=== PATIENT | female | born 1975 | race Caucasian/White ===

== ENCOUNTER 2020-10-15 06:10 | Emergency (ER) | payer BC, SELFPAY ==
--- NOTE | ~2020-10-15 | CT_ITS ---
EXAMINATION: CT ABDOMEN AND PELVIS WITH CONTRAST CLINICAL INFORMATION: Right upper quadrant, epigastric, spermatic pain COMPARISON: CT abdomen and pelvis 04/05/2011 TECHNIQUE: Multidetector volumetric images were obtained from the superior aspect of the liver through the pubic symphysis following administration 85 mL of Omnipaque 350 intravenous contrast. Sagittal and coronal reformatted images were obtained on the technologist's workstation. Oral contrast: No This CT examination was performed using dose optimization techniques as appropriate, variously including the following: *Automated exposure control *Adjustment of mA and/or kV according to patient size (this includes techniques or standardized protocols for targeted exams where dose is matched to indication/reason for exam; i.e. extremities or head) *Use of iterative reconstruction technique DLP: 1434 mGy-cm FINDINGS: LUNG BASES: The lung bases are clear. LIVER, GALLBLADDER, AND BILIARY TREE: The liver is normal in size, shape, and attenuation. No focal hepatic lesion or biliary ductal dilatation is present. The gallbladder is distended with a punctate 5 mm gallstone and adjacent calcification or gravel.. PANCREAS: Unremarkable. SPLEEN: Unremarkable. ADRENAL GLANDS: Unremarkable. KIDNEYS AND URETERS: The kidneys are normal in size, shape, and attenuation. No hydronephrosis, hydroureter, or calculi seen. No perinephric stranding. BLADDER: Unremarkable. GASTROINTESTINAL TRACT: Scattered stool and gas seen in colon without distention. The small bowel loops are normal caliber. Appendix not seen well. ABDOMINAL WALL: No significant hernia is appreciated. LYMPH NODES: Normal. VASCULAR: Unremarkable. PELVIC VISCERA: The uterus is anteverted with scattered calcifications within. OSSEOUS STRUCTURES: Unremarkable. Distended gallbladder with a solitary gallstone with adjacent gravel or calcification. No wall thickening seen. Mild constipation.
--- NOTE | ~2020-10-15 | US_ITS ---
EXAMINATION: US ABDOMEN LIMITED CLINICAL INFORMATION: Right upper quadrant epigastric pain.. COMPARISON: CT scan of the abdomen and pelvis dated 10/15/2020. TECHNIQUE: Real-time imaging of the right upper quadrant abdominal viscera. FINDINGS: PANCREAS: The pancreatic body and portions of the head and tail are visualized and are unremarkable. Remainder of pancreas is obscured by overlying bowel gas. LIVER: Normal. The liver is normal in size. The liver contour is normal. Parenchymal echogenicity is normal. No focal hepatic lesion. There is no intrahepatic biliary duct dilatation seen. GALLBLADDER: The tiny calcified gallstone seen on recent CT scan of the abdomen are not appreciated on this ultrasound exam. The gallbladder is well distended without evidence of stones by ultrasound, sludge, polyps, wall thickening or pericholecystic fluid. COMMON BILE DUCT: Normal in caliber measuring 0.3 cm in diameter. RIGHT KIDNEY: Normal. No hydronephrosis. No renal calculi or focal parenchymal lesions. The kidney measures 12.3 cm in maximum dimension. FREE FLUID: None. US/US abdomen limited IMPRESSION: 1. The gallstone seen on CT scan are not appreciated on this exam. The gallbladder is mildly distended but otherwise unremarkable. 2. No evidence of biliary obstruction. 3. Incomplete view of the pancreatic head and tail. Visualized portions of pancreas are unremarkable.
[2020-10-15 06:16] VITALS: BP 164/92; PULSE 72; RESP 16; TEMP 37.2; O2SAT 98; BMI 45.6
--- NOTE | 2020-10-15 06:49 | ED.ABDPAIN ---
HPI - Abdominal Pain General Chief Complaint: Abdominal Pain Stated Complaint: ABD PAIN Time Seen by Provider: 10/15/20 06:37 Source: patient Mode of arrival: ambulatory Limitations: no limitations History of Present Illness HPI narrative: Patient comes to the emergency room complaining of abdominal pain. Patient states it started approximately 2 months ago, initially it started in the suprapubic area, patient went to see her OBGYN, patient does have history of stage IV endometriosis. Patient has had episodes of diarrhea and constipation, patient went to see a senior product development engineer, she was given medication for abdominal spasms. Patient states she has been taking her medication, MiraLax, nothing has helped. However, over last 2 days, the pain has gradually been constant in the epigastric and suprapubic area, 02/10, nonradiating. Patient states that the pain is not related to meals. Patient denies vomiting or diarrhea, no fever. At this time, patient declined pain or nausea medication. MD elicited complaint: abdominal pain Related Data Previous Rx's Medication Instructions Recorded nitrofurantoin monohyd/m-cryst 100 mg PO Q12H 7 Days #14 cap 10/15/20 [Macrobid] Allergies Allergy/AdvReac Type Severity Reaction Status Date / Time No Known Allergies Allergy Verified 10/15/20 06:16 Review of Systems Review of Systems Constitutional : No Weight loss, No Fever, No Chills, No Night Sweats, No Fatigue, No Malaise ENT/Mouth : No Hearing loss, No Ear Pain, No Nasal Congestion, No Sinus Pain, No Hoarseness, No sore throat, No Rhinorrhea, No Swallowing Difficulty Eyes: No Eye Pain, No Swelling, No Redness, No Foreign Body, No Discharge, No Vision Changes Cardiovascular : No Chest Pain, No SOB, No Dyspnea on Exertion, No Orthopnea, No Edema, No Palpitations Respiratory : No Cough, No Sputum, No Wheezing, No Smoke Exposure, No Dyspnea Gastrointestinal : No Nausea, No Vomiting, occasional constipation and diarrhea, complaining of right upper quadrant, the gastric left lower quadrant suprapubic pain, No Hematochezia, No Melena Genitourinary : no irregular bleeding, No Dysuria, No Urinary Frequency, No Hematuria, No Urinary Incontinence, No Urgency, No Flank Pain, No Urinary Flow Changes, No Hesitancy Musculoskeletal : No joint pain, No Myalgias, No Joint Swelling Skin : No Skin Lesions, No rash Neuro : No Weakness, No Numbness, No Paresthesias, No Loss of Consciousness, No Dizziness, No Headache Psych : No Anxiety/Panic, No Depression, No SI/HI/AH/VH, No Social Issues, Heme/Lymph: No Bruising, No Bleeding,No Lymphadenopathy Endocrine : No Polyuria, No Polydipsia, No Temperature Intolerance Physical Exam Vital Signs: Vital Signs: Last Vital Signs Temp 98.1 F 10/15/20 11:03 Pulse 83 10/15/20 11:03 Resp 18 10/15/20 11:03 BP 131/60 10/15/20 11:03 Pulse Ox 95 10/15/20 11:03 Body Mass Index 45.6 Appearance: Alert. Oriented X3. No acute distress. Eyes: Pupils equal, round and reactive to light. ENT: Pharynx normal. Neck: Normal inspection. Neck supple. No lymph nodes noted. No crepitus CVS: Normal heart rate and rhythm. Pulses normal. Normal S1 and S2 Respiratory: No respiratory distress. Breath sounds normal. No Wheezing. No rales Abdomen: Soft , tender to palpation over the suprapubic area, right upper quadrant and epigastric area. No rigidity. No distention. good BS x4 Skin: Skin warm and dry. Normal skin color. Normal skin turgor. Extremities: No lower extremity edema. No lower extremity edema. No Lacerations. No Rash Neuro: Oriented X 3. No motor deficit. No sensory deficit. Moving all extermities. No slurred speech. Course Course Course Narrative: Patient reported that she does not know if she had a reaction to contrast from CT scan or MRI, patient was premedicated with Benadryl, Pepcid, Solu-Medrol. Patient states that after the that she had injected the last time, cause her to have shortness of breath/wheezing Patient tolerated well the CT scan, no allergic reaction, no wheezing. At this time, patient states that she still feels bloated, generalized distension, declines pain medication. I discussed the CT scan with the patient, she continues having right upper quadrant pain and epigastric pain, this time, I discussed with the patient that we will go ahead and order an ultrasound I discussed the ultrasound with the patient, no acute findings. Patient does have a UTI, antibiotics were sent to the patient's pharmacy MDM - Abdominal Pain Lab Data Result diagrams: 10/15/20 07:02 10/15/20 07:02 Labs: Lab Results 10/15/20 10/15/20 10/15/20 Range/Units 07:02 07:02 07:02 WBC 13.9 H (4.8-10.8) X10*3/uL RBC 4.83 (4.20-5.50) X10*6/uL Hgb 13.6 (12.0-16.0) g/dl Hct 42.3 (37-47) % MCV 87.6 (80-98) fL MCH 28.2 (27.0-33.0) pg MCHC 32.2 (31.0-35.0) g/dl RDW 15.9 (11.0-16.0) % Plt Count 449 H (160-400) X10*3/uL MPV 10.0 (9.4-12.3) fL Immature Gran % (Auto) 0.3 (0.0-0.4) % Neut % (Auto) 79.2 H (45-73) % Lymph % (Auto) 15.2 L (20-40) % Benzie % (Auto) 4.0 (2-11) % Eos % (Auto) 0.8 (0-4) % Baso % (Auto) 0.5 (0-2) % Lymph # (Auto) 2.1 (1.2-4.9) X10*3/uL Benzie # (Auto) 0.6 (0.1-1.2) X10*3/uL Eos # (Auto) 0.1 (0.0-0.4) X10*3/uL Baso # (Auto) 0.1 (0.0-0.2) X10*3/uL Abs Immat Gran (auto) 0.04 H (0.00-0.03) X10*3/uL Absolute Neuts (auto) 11.0 H (2.0-8.3) X10*3/uL Absolute Nucleated RBC 0.000 (0.0-0.012) X10*3/uL Nucleated RBC % (auto) 0.0 (0.0-0.2) /100WBC Sodium 138 (135-145) mmol/L Potassium 4.0 (3.3-5.1) mmol/L Chloride 104 (96-108) mmol/L Carbon Dioxide 23 (22-29) mmol/L Anion Gap 15 (12-20) BUN 9 (9-16) mg/dL Creatinine 0.80 (0.5-1.4) mg/dL Estim Creat Clear Calc 130.1 Estimated GFR > 60 POC Glucose (60-115) mg/dL Random Glucose 101 (60-115) mg/dL Calcium 9.9 (8.4-10.2) mg/dL Total Bilirubin 0.4 (0.0-1.0) mg/dL Direct Bilirubin 0.2 (0.0-0.5) mg/dL AST 35 H (5-31) U/L ALT 65 H (0-31) U/L Alkaline Phosphatase 76 (39-117) U/L Total Protein 8.0 (6.5-8.0) g/dL Albumin 4.8 (3.5-5.0) g/dL Lipase 19 (8-78) U/L Urine Color YELLOW Urine Appearance HAZY Urine pH 6.0 (5.0-8.0) Ur Specific [place] 1.020 (1.005-1.025) Urine Protein TRACE (NEG-TRACE) MG/DL Urine Glucose (UA) NEG (NEG) MG/DL Urine Ketones 5 (NEG) MG/DL Urine Blood 2+ H (NEG) Urine Nitrite NEG (NEG) Ur Leukocyte Esterase 2+ H (NEG) Urine RBC 5-9 H (0) /HPF Urine WBC 15-29 H (0-4) /HPF Ur Squamous Epith Cells 2+ /LPF Urine Bacteria 1+ /LPF Urine Mucus 1+ /LPF Urine Test (NEGATIVE) 10/15/20 10/15/20 Range/Units 07:02 11:00 WBC (4.8-10.8) X10*3/uL RBC (4.20-5.50) X10*6/uL Hgb (12.0-16.0) g/dl Hct (37-47) % MCV (80-98) fL MCH (27.0-33.0) pg MCHC (31.0-35.0) g/dl RDW (11.0-16.0) % Plt Count (160-400) X10*3/uL MPV (9.4-12.3) fL Immature Gran % (Auto) (0.0-0.4) % Neut % (Auto) (45-73) % Lymph % (Auto) (20-40) % Benzie % (Auto) (2-11) % Eos % (Auto) (0-4) % Baso % (Auto) (0-2) % Lymph # (Auto) (1.2-4.9) X10*3/uL Benzie # (Auto) (0.1-1.2) X10*3/uL Eos # (Auto) (0.0-0.4) X10*3/uL Baso # (Auto) (0.0-0.2) X10*3/uL Abs Immat Gran (auto) (0.00-0.03) X10*3/uL Absolute Neuts (auto) (2.0-8.3) X10*3/uL Absolute Nucleated RBC (0.0-0.012) X10*3/uL Nucleated RBC % (auto) (0.0-0.2) /100WBC Sodium (135-145) mmol/L Potassium (3.3-5.1) mmol/L Chloride (96-108) mmol/L Carbon Dioxide (22-29) mmol/L Anion Gap (12-20) BUN (9-16) mg/dL Creatinine (0.5-1.4) mg/dL Estim Creat Clear Calc Estimated GFR POC Glucose 113 (60-115) mg/dL Random Glucose (60-115) mg/dL Calcium (8.4-10.2) mg/dL Total Bilirubin (0.0-1.0) mg/dL Direct Bilirubin (0.0-0.5) mg/dL AST (5-31) U/L ALT (0-31) U/L Alkaline Phosphatase (39-117) U/L Total Protein (6.5-8.0) g/dL Albumin (3.5-5.0) g/dL Lipase (8-78) U/L Urine Color Urine Appearance Urine pH (5.0-8.0) Ur Specific [place] (1.005-1.025) Urine Protein (NEG-TRACE) MG/DL Urine Glucose (UA) (NEG) MG/DL Urine Ketones (NEG) MG/DL Urine Blood (NEG) Urine Nitrite (NEG) Ur Leukocyte Esterase (NEG) Urine RBC (0) /HPF Urine WBC (0-4) /HPF Ur Squamous Epith Cells /LPF Urine Bacteria /LPF Urine Mucus /LPF Urine Test NEGATIVE (NEGATIVE) Imaging Data Abdominal ultrasound: Radiologist's impression: FINDINGS: PANCREAS: The pancreatic body and portions of the head and tail are visualized and are unremarkable. Remainder of pancreas is obscured by overlying bowel gas. LIVER: Normal. The liver is normal in size. The liver contour is normal. Parenchymal echogenicity is normal. No focal hepatic lesion. There is no intrahepatic biliary duct dilatation seen. GALLBLADDER: The tiny calcified gallstone seen on recent CT scan of the abdomen are not appreciated on this ultrasound exam. The gallbladder is well distended without evidence of stones by ultrasound, sludge, polyps, wall thickening or pericholecystic fluid. COMMON BILE DUCT: Normal in caliber measuring 0.3 cm in diameter. RIGHT KIDNEY: Normal. No hydronephrosis. No renal calculi or focal parenchymal lesions. The kidney measures 12.3 cm in maximum dimension. FREE FLUID: None. US/US abdomen limited IMPRESSION: 1. The gallstone seen on CT scan are not appreciated on this exam. The gallbladder is mildly distended but otherwise unremarkable. 2. No evidence of biliary obstruction. 3. Incomplete view of the pancreatic head and tail. Visualized portions of pancreas are unremarkable CT scan - abdomen: Radiologist's impression: FINDINGS: LUNG BASES: The lung bases are clear. LIVER, GALLBLADDER, AND BILIARY TREE: The liver is normal in size, shape, and attenuation. No focal hepatic lesion or biliary ductal dilatation is present. The gallbladder is distended with a punctate 5 mm gallstone and adjacent calcification or gravel.. PANCREAS: Unremarkable. SPLEEN: Unremarkable. ADRENAL GLANDS: Unremarkable. KIDNEYS AND URETERS: The kidneys are normal in size, shape, and attenuation. No hydronephrosis, hydroureter, or calculi seen. No perinephric stranding. BLADDER: Unremarkable. GASTROINTESTINAL TRACT: Scattered stool and gas seen in colon without distention. The small bowel loops are normal caliber. Appendix not seen well. ABDOMINAL WALL: No significant hernia is appreciated. LYMPH NODES: Normal. VASCULAR: Unremarkable. PELVIC VISCERA: The uterus is anteverted with scattered calcifications within. OSSEOUS STRUCTURES: Unremarkable. Distended gallbladder with a solitary gallstone with adjacent gravel or calcification. No wall thickening seen. Mild constipation. Discharge Plan Discharge Clinical Impression: Abdominal pain Qualifiers: Abdominal location: unspecified location Qualified Code(s): R10.9 - Unspecified abdominal pain UTI (urinary tract infection) Qualifiers: Urinary tract infection type: site unspecified Hematuria presence: without hematuria Qualified Code(s): N39.0 - Urinary tract infection, site not specified Patient Disposition: Home, Self-Care Instructions: Urinary Tract Infection in Women (ED), Abdominal Pain (ED) Additional Instructions: Please follow-up with your primary care physician tomorrow. If you have any worsening or new symptoms, please return to the emergency room or call 911 Prescriptions: New nitrofurantoin monohyd/m-cryst [Macrobid] 100 mg capsule 100 mg PO Q12H 7 Days Qty: 14 RF: 0 PMFSH Past Medical History Medical History Hypertension IBS (irritable bowel syndrome) Surgical History History of History of exploratory laparotomy Social History Social History Alcohol intake: never Smoking Status: Never smoker Use of substances other than those prescribed or required for medical reasons: No Advance Directives: No Advance Directives Information Provided: No
[2020-10-15 07:07] LABS: MANUAL DIFF FLAG NO
[2020-10-15 07:08] LABS: Basophils Absolute Auto 0.1 X10*3/uL (0.0-0.2); Basophils Percent Auto 0.5 % (0-2); Eosinophils Absolute Auto 0.1 X10*3/uL (0.0-0.4); Eosinophils Percent Auto 0.8 % (0-4); Hematocrit 42.3 % (37-47); Hemoglobin 13.6 g/dl (12.0-16.0); Imm Gran Abs Auto 0.04 X10*3/uL (0.00-0.03); Imm Gran Pct Auto 0.3 % (0.0-0.4); Lymphocytes Absolute Auto 2.1 X10*3/uL (1.2-4.9); Lymphocytes Percent Auto 15.2 % (20-40); Mean Corpuscular HGB Conc 32.2 g/dl (31.0-35.0); Mean Corpuscular Hemoglobin 28.2 pg (27.0-33.0); Mean Corpuscular Volume 87.6 fL (80-98); Monocytes Absolute Auto 0.6 X10*3/uL (0.1-1.2); Neutrophils Percent Auto 79.2 % (45-73); Platelet Count 449 X10*3/uL (160-400); Red Blood Count 4.83 X10*6/uL (4.20-5.50); Red Cell Distribution Width 15.9 % (11.0-16.0); White Blood Count 13.9 X10*3/uL (4.8-10.8)
[2020-10-15 07:10] LABS: Glucose Urine UA NEG (NEG); Leukocyte Esterase Urine 2+ (NEG); Nitrite Urine NEG (NEG); UACC Culture Trigger YES; Urine Blood 2+ (NEG); Urine Ketones 5 MG/DL (NEG); Urine Protein TRACE MG/DL (NEG-TRACE)
[2020-10-15 07:19] LABS: Appearance Urine HAZY; Color Urine YELLOW
[2020-10-15 07:20] LABS: UPreg QC Valid YES; Urine Pregnancy NEGATIVE (NEGATIVE)
[2020-10-15 07:21] LABS: Bacteria Urine 1+ /LPF; Mucus Urine 1+ /LPF; Squamous Epithelial Cell Urine 2+ /LPF
[2020-10-15 07:34] LABS: Alanine Aminotransferase 65 U/L (0-31); Albumin Level 4.8 g/dL (3.5-5.0); Alkaline Phosphatase 76 U/L (39-117); Anion Gap 15 (12-20); Aspartate Amino Transferase 35 U/L (5-31); Bilirubin Direct 0.2 mg/dL (0.0-0.5); Bilirubin Total 0.4 mg/dL (0.0-1.0); Blood Urea Nitrogen 9 mg/dL (9-16); Calcium 9.9 mg/dL (8.4-10.2); Carbon Dioxide 23 mmol/L (22-29); Chloride 104 mmol/L (96-108); Creatinine Clr Calc Pharmacy 130.1; Estimated Glomerular Filt Rate > 60; Glucose Random 101 mg/dL (60-115); Lipase 19 U/L (8-78); Sodium 138 mmol/L (135-145)
--- NOTE | 2020-10-15 07:40 | PC.NURSE ---
pt arrived prior to 7a with c/o abdominal pain. Pt states pain is diffuse, radiating up to epigastrum and down through pelvis. Hx endometriosis. No change to bowel or bladder, no urinary complaints. IV in place, labs drawn and sent, pt now to CT scan. Awaiting results, orders, and disposition
[2020-10-15] MEDS: Famotidine/PF 20 MG/2 ML VIAL IVPUSH (07:52)
[2020-10-15] MEDS: methylPREDNISolone Sod Succ 125 MG/2 ML VIAL IVPUSH (07:52)
[2020-10-15] MEDS: diphenhydrAMINE HCL 50 MG/ML VIAL IVPUSH (07:52)
[2020-10-15] MEDS: iohexoL 350 MG/ML 75 ML INFUS..BTL IV (08:25)
[2020-10-15 08:50] VITALS: BP 157/74; PULSE 83; RESP 12; TEMP 37.1; O2SAT 97
[2020-10-15 11:03] VITALS: BP 131/60; PULSE 83; RESP 18; TEMP 36.7; O2SAT 95
--- NOTE | 2020-10-15 11:04 | PC.NURSE ---
patient a&ox3, pt req ice chips-given with ok of provider, poc obtained per pt request poc 113, pt c/o abd pain 11/11, vss, awaiting us results, will continue to monitor.
[2020-10-15 11:09] LABS: Glucose, Whole Blood 113 mg/dL (60-115)
== END 2020-10-15 11:59 | disposition home or self-care (01) ==
PROVIDERS: Emergency Provider Emergency Medicine; PCP Family Medicine
DX: N39.0 Urinary tract infection, site not specified (principal); R10.11 Right upper quadrant pain; R10.13 Epigastric pain; I10 Essential (primary) hypertension; K58.9 Irritable bowel syndrome, unspecified
CPT/HCPCS: 36415; 74177; 76705; 80048; 80076; 81001; 81003; 81025; 82947; 83690; 85025; 87086; 87147; 96374; 96375; 99284; J1200; J2930; Q9967

== ENCOUNTER 2023-05-30 10:00 | Outpatient (AMB) | payer OTHER, SELFPAY ==
[2023-05-30 10:18] VITALS: BP 150/67; PULSE 92; RESP 14; O2SAT 97; BMI 38.9
--- NOTE | 2023-05-30 10:18 | MHC.OFFVIS ---
Intake Vital Signs 05/30/23 10:18 Height 5 ft 8 in Weight 256 lb BMI 38.9 BP 150/67 H Blood Pressure Location Lt brachial Position Sitting Respiration 14 Pulse 92 Pulse Source Pulse Oximeter Pulse Oximetry (%) 97 Oxygen Delivery Method Room Air Intake Visit Reasons: Sacroilltis worse on right/confirmed Allergies No Known Allergies Allergy (Verified 05/30/23 10:19) Medication List - Last Reconciled 05/30/23 by Jena Taylor LPN gabapentin 300 mg PO TID lisinopril 20 mg PO DAILY norethindrone acetate 15 mg PO DAILY omeprazole 20 mg PO DAILY sertraline mg PO simvastatin 40 mg PO DAILY trazodone 50 mg PO BEDTIME HPI Sacroilltis worse on right/confirmed HPI Details 48-year-old female who presents today to the office for a right sacroiliitis. The patient reports pain in the right lower back, pubic bone, inner thigh, and inguinal region. She also reports pain at the junction posteriorly of the buttocks and the thighs. The pain is described as an aching stabbing sensation up to 8 to 9/10 in intensity in the lower back region and similar intensity but stabbing/burning sensation in the anterior thigh and groin. She is obese and has been working on weight loss. In addition she has also been wearing a sacroiliac belt in recent months which have been associated with an increase in the burning sensation in her anterior thigh. Hip range of motion and weight-bearing makes her groin pain worse. She also has a history of endometriosis status post pelvic surgery and has never undergone pelvic floor massage or PT. She has had sacroiliac joint dysfunction since age 20 with off and on sacroiliac belts and injections. She has tried ibuprofen and Tylenol. She had right SIJ injection on 10/31/22 and 05/08/23 which provided moderate benefit. It sounds like she also had a sacrum MRI which was unremarkable. [facility]LY [facility] Medical History Hypertension IBS (irritable bowel syndrome) Surgical History History of History of exploratory laparotomy Family History Mother FHx: thyroid disease Mental health disorder Hypertension Father Hypertension High cholesterol FHx: prostate cancer Daughter Endometriosis POTS (postural orthostatic tachycardia syndrome) Social History Alcohol intake: never Patient Tobacco Use Status: Never used Tobacco Review of Systems Const All systems reviewed & are unremarkable except as noted in HPI and below Physical Exam Vital Signs: Last Vital Signs Pulse 92 05/30/23 10:18 Resp 14 05/30/23 10:18 BP 150/67 H 05/30/23 10:18 Pulse Ox 97 05/30/23 10:18 Oxygen Delivery Method Room Air 05/30/23 10:18 BMI result Body Mass Index 38.9 General: Appears afebrile. Alert and oriented. Mood and affect appropriate. Follows and participates in conversation appropriately. Respiratory effort is unlabored. Able to transition from sit to stand unassisted. Ambulates with bilaterally normal heel strike and toe off. Hip range of motion is painful and DANTE is positive. Results Reviewed Results Reviewed: No imaging is available for review. Assessment & Plan Assessment & Plan (1) Hip osteoarthritis: Code(s): M16.9 - Osteoarthritis of hip, unspecified Qualifiers: Osteoarthritis type: primary Laterality: right Qualified Code(s): M16.11 - Unilateral primary osteoarthritis, right hip (2) Pelvic pain: Code(s): R10.2 - Pelvic and perineal pain (3) Meralgia paresthetica: Code(s): G57.10 - Meralgia paresthetica, unspecified lower limb Qualifiers: Laterality: right Qualified Code(s): G57.11 - Meralgia paresthetica, right lower limb (4) Sacroiliac dysfunction: Code(s): M53.3 - Sacrococcygeal disorders, not elsewhere classified Plan 48-year-old female with aching stabbing pain in the right lower back overlying the sacroiliac joint as well as stabbing burning sensations in her right groin, right anterior thigh and right perineum up to and including the vulvar. I think she has multiple pain generators in light of her history including longstanding sacroiliac joint dysfunction, obesity, wearing belts potentially compressing on LFCN, history of pelvic surgery and endometriosis raising possibility of pelvic floor dysfunction and myofascial pain as well as right groin pain that could be secondary to hip osteoarthritis. I will send her for plain films of the right hip. In the meanwhile I encouraged her to start exercises for meralgia paresthetica at home utilizing online videos. She will also seek out a formal physical therapist for pelvic floor dysfunction, pelvic floor massage and trigger point release. If these measures are not helpful we can consider diagnostic/therapeutic LF CN block. If there is severe hip osteoarthritis, we will consider referral to Orthopedics for replacement after adequate weight loss. For sacroiliac joint we can consider either nerve stimulation or fusion in the future if it is still bothersome after other pain generator they were addressed. We also discussed PRP/A2M concentrate injections to her right hip and sacroiliac joint and ligaments for [id number] arthritis and degenerative pain. She will follow-up in [address] Reyes by Nelson Aldana, medical accounting clerk, on 05/30/2023. I, Dr. Reyes, have personally reviewed and agree with the information entered by the scribe. Orders: Orders XR hip RT min 2V Today M16.9 - Osteoarthritis of hip, unspecified Referrals Pelvic Health Safety Engineer Referral R10.2 - Pelvic and perineal pain Coding Level of Care Code New Pt Level 4 (85218) Diagnoses Primary osteoarthritis of right hip M16.11 Osteoarthritis type: primary Laterality: right Pelvic pain R10.2 Meralgia paresthetica of right side G57.11 Laterality: right Sacroiliac dysfunction M53.3
== END 2023-05-30 11:26 | disposition home or self-care (01) ==
PROVIDERS: PCP Family Medicine; Visit Provider Internal Medicine
DX: M16.11 Unilateral primary osteoarthritis, right hip (principal); R10.2 Pelvic and perineal pain; G57.11 Meralgia paresthetica, right lower limb; M53.3 Sacrococcygeal disorders, not elsewhere classified
CPT/HCPCS: 99204

== ENCOUNTER → 2023-05-30 10:00 | Outpatient (BNVA) | payer OTHER, SELFPAY | PROVIDERS: PCP Family Medicine; Visit Provider Internal Medicine ==